=== PATIENT | female | born 1965 | race Caucasian/White ===

== ENCOUNTER → 2017-08-23 | Outpatient (CLI) | payer BC | LOC: CFH 10:27 | PROVIDERS: ATTEND Obstetrics & Gynecology Gynecology | DX: Z12.31 Encounter for screening mammogram for malignant neoplasm of breast (principal) | CPT/HCPCS: 77063; 77067 ==

== ENCOUNTER 2017-10-28 20:39 | Emergency (ER) | payer BC ==
[~2017-10-28] VITALS: Ht 162.6 cm; Wt 91.0 kg
[2017-10-28 21:54] VITALS: BP 136/88
[2017-10-28 21:58] LABS: CULTURE INDICATED? YES; HCG UR SG 1.031 (1.003-1.030); MICROSCOPIC INDICATED
== END 2017-10-28 23:07 | disposition home or self-care (01) ==
LOC: ED 22:40
DX: N20.1 Calculus of ureter (principal); R30.0 Dysuria
CPT/HCPCS: 81001; 81025; 87086; 99284

== ENCOUNTER → 2018-07-24 | Outpatient (CLI) | payer BC | END | disposition home or self-care (01) | LOC: CFH 11:51 | PROVIDERS: ATTEND Obstetrics & Gynecology Gynecology | DX: N64.4 Mastodynia (principal) | CPT/HCPCS: 76641; 77066; G0279 ==

== ENCOUNTER → 2020-01-17 | Outpatient (CLI) | payer BC | END | disposition home or self-care (01) | LOC: CFH 16:15 | PROVIDERS: ATTEND Obstetrics & Gynecology Gynecology | DX: Z12.31 Encounter for screening mammogram for malignant neoplasm of breast (principal) | CPT/HCPCS: 77067 ==